=== PATIENT | female | born 1950 | race Caucasian/White ===

== ENCOUNTER → 2023-11-07 09:02 | Outpatient (REF) | payer MEDICARE, SELFPAY | LOC: RCS 09:02 | PROVIDERS: ATTENDING PHYSICIAN Internal Medicine Cardiovascular Disease; PRIMARYCARE PHYSICIAN Family Medicine | DX: R06.02 Shortness of breath (principal) | CPT/HCPCS: 93017 ==

== ENCOUNTER → 2024-11-12 10:41 | Outpatient (REF) | payer MEDICARE, SELFPAY | LOC: HWWDC 10:41 | PROVIDERS: ATTENDING PHYSICIAN Family Medicine | DX: Z12.31 Encounter for screening mammogram for malignant neoplasm of breast (principal) | CPT/HCPCS: 77063; 77067 ==